=== PATIENT | male | born 1950 | race Caucasian/White ===

== ENCOUNTER 2022-10-31 16:41 | Emergency (ER) | payer MEDICARE ==
[~2022-10-31] VITALS: Ht 177.8 cm; Wt 92.8 kg
[2022-10-31] MEDS ORDERED: NS 1,000 ML IV ONE (22:00)
[2022-10-31] MEDS ORDERED: KETOROLAC 30 MG/ML 1ML VIAL IV ONE (22:00)
[2022-10-31] MEDS ORDERED: ISOVUE-370 76% 100ML VIAL As Ordered ONE (22:03)
[2022-10-31 22:37] LABS: BASO % 0.2 % (0.0-1.0); EOS % 0.2 % (0.0-3.0); HEMATOCRIT 45.9 % (42.0-52.0); HEMOGLOBIN 15.4 g/dl (13.5-17.5); LYMPH # 1.5 10^3/uL (1.5-5.0); LYMPH % 24.3 % (24.0-44.0); MEAN CORPUSCULAR HEMOGLOBIN 30.3 pg (27.0-33.0); MEAN CORPUSCULAR HGB CONC 33.6 g/dl (32.0-36.5); MEAN CORPUSCULAR VOLUME 90.2 fl (80.0-96.0); MONO # 0.5 10^3/uL (0.0-0.8); MONO % 8.7 % (2.0-8.0); NEUTROPHILS # 4.1 10^3/uL (1.5-8.5); NEUTROPHILS % 66.3 % (36.0-66.0); PLATELET COUNT, AUTOMATED 213 10^3/uL (150-450); RED BLOOD COUNT 5.09 10^6/uL (4.30-6.10); WHITE BLOOD COUNT 6.1 10^3/uL (4.0-10.0)
[2022-10-31 23:01] LABS: MONO SCRN NEGATIVE (NEGATIVE)
[2022-11-01 00:02] LABS: RSV AMPLIFICATION NEGATIVE (NEGATIVE)
[2022-11-01] MEDS ORDERED: IBUP-1022 PO (00:31)
[2022-11-01 00:43] VITALS: BP 136/69; TEMP 98.6; O2SAT 96
== END 2022-11-01 00:46 | disposition home or self-care (01) ==
LOC: M ED 16:41
DX: U07.1 COVID-19 (principal); E03.9 Hypothyroidism, unspecified; E78.5 Hyperlipidemia, unspecified; Z79.1 Long term (current) use of non-steroidal anti-inflammatories (NSAID)
CPT/HCPCS: 70491; 80047; 85025; 86308; 87631; 96361; 96374; 99284; J1885; Q9967